=== PATIENT | female | born 1960 | race Two or more races ===

== ENCOUNTER → 2016-11-03 | Outpatient (CLI) | payer OTHER ==
--- NOTE | 2016-11-03 16:41 | CARD ---
APPROVED REPORT INDICATION Chest Pain RISK FACTORS Hypertension Reason : Dizziness PROCEDURE The patient underwent an Exercise Stress Test using the Dean Protocol. Blood pressure, heart rate, a nd EKG were monitored. An Echocardiogram was performed by collision technician in four stages in quad fashion. At peak stress four se lected images were obtained and placed side by side with resting images for comparison. STRESS ECHO FINDINGS The resting Echocardiogram showed normal left ventricular contractility with an estimated Ejection Fr action of about 60 %. The resting Echocardiogram showed wall motion abnormality in the basal and mid inferoseptalwall. The stress Echocardiogram showed wall motion abnormality in the inferior and basal and mid inferosept alwalls.. Test Type: Exercise Stress Nurse/Tech: Eloise Keller RN Test Indications: chest pain Cardiac History and Allergies: see ehr Medications: see ehr Medical History: see ehr Resting ECG: SR Resting Heart Rate: 84 bpm Resting Blood Pressure: 121/64mmHg Pretest Chest Pain: None Nurse/Tech Notes Lungs CTA, S1, S2 Consent: The procedure was explained to the patient in lay terms. Informed consent was witnessed. Eugene eout was entered into [email or web address]. History and Stress Test performed by Eloise Keller R.N. Stress Symptoms No chest pain or symptoms. POST EXERCISE Reason for Termination: Fatigue Target HR: No Max HR: 133 bpm 82% of Maximum Predicted HR: 162 bpm Exercise duration: 6:02 min:sec, 3 Stage Exercise capacity: 7.0METs Max Blood Pressure: 159/66mmHg Blood Pressure response to exercise: Normal blood pressure response during stress. Chest Pain: No. Arrhythmia: No. ST Change: No. INTERPRETATION Stress EKG Conclusion: Baseline EKG showed sinus rhythm. No ischemic changes at peak stress. No arr hythmias. RESTING ECG Rhythm: Sinus STRESS ECG Rhythm: Sinus Tachycardia Arrhythmias: None Preliminary Notification Critical Value: No <Conclusion> Treadmill exercise stress echocardiogram did not show any evidence of ischemia or infarct. However, patient achieved submaximal stress level of 82% age predicted maximum heart rate. Normal left ventricle systolic function with ejection fraction estimated at 60%. Patient had good activity tolerance.
--- NOTE | 2016-11-03 16:43 | RAD ---
Indication chronic back pain. AP and lateral views of the thoracic spine were obtained as well as a swimmer's view. There are are some degenerative changes seen in the lower cervical spine. The thoracic spine appears unremarkable. An acute bony finding is not seen. IMPRESSION: No acute or significant finding seen involving the thoracic spine
== END | disposition home or self-care (01) ==
LOC: ECHO 12:27
PROVIDERS: ATTEND Physician Assistant Medical
DX: M54.6 Pain in thoracic spine (principal); R07.9 Chest pain, unspecified
CPT/HCPCS: 72072; 93017; 93350

== ENCOUNTER → 2017-02-21 | Outpatient (CLI) | payer OTHER ==
[2017-02-02 11:00] VITALS: BP 165/81
[~2017-02-21] MED LIST: BUSP10TA PO; FLUO20CA8 PO; FOLI1TAB16 PO; GADOBUTROL 7.5 MMOL/7.5 ML VIAL IV ONE; LAMO200T PO; LISI-334 PO; LISI10TA2 PO; MELO15TA23 PO; MELO7.5T29 PO; METF500T4 PO; MIRT15TA3 PO; POLY255P PO; QUET50TA76 PO; THIA100T22 PO; TRAM50TA PO
--- NOTE | 2017-02-21 12:34 | RAD ---
MRI Brain with and without contrast History: Headaches, memory loss, history of seizures Technique: Axial diffusion, axial gradient echo T2, axial T2, axial FLAIR, sagittal and axial T1, and postcontrast axial, sagittal, and coronal T1-weighted images were acquired of the brain. Contrast: 7 cc Gadavist Comparison: January 31, 2017 Findings: There is mild motion. There is no restricted diffusion suggestive of recent infarct or cytotoxic edema. There is no intra-axial mass effect, midline shift or extra axial fluid collection, nodular parenchymal or leptomeningeal enhancement. Ventricular size is within normal limits. There is mild prominence of the supratentorial subarachnoid spaces greater than expected for the patient's age. There is again encephalomalacia with cortical involvement of the left temporal lobe laterally. There is associated gliosis signified by T2 and FLAIR hyperintense signal abnormality. There is other minimal T2 and FLAIR hyperintense signal abnormality of the supratentorial periventricular white matter bilaterally. Cerebral tonsils are normal in location. There is preservation of marrow signal of the clivus. There is no significant abnormality of the pineal gland or pituitary gland. Mastoid air cells are aerated. There is again likely mucous retention cyst at the right sphenoethmoidal recess. Impression: 1. There is no evidence of recent infarct or abnormal intracranial enhancement. 2. There is again encephalomalacia with cortical involvement of the lateral left temporal lobe compatible with previous infarct or trauma. Other very mild T2 and FLAIR hyperintense signal abnormality of the supratentorial white matter may be due to chronic microvascular ischemic disease. 3. There is mild prominence of the supratentorial subarachnoid spaces which may be due to involutional change, somewhat greater than expected for the patient's age. Electronically signed by: Vick Patino MD (02/21/2017 12:31 PM)
== END | disposition home or self-care (01) ==
LOC: MRI 10:48
PROVIDERS: ATTEND Psychiatry & Neurology Neurology with Special Qualifications in Child Neurology
DX: Q04.0 Congenital malformations of corpus callosum (principal)
CPT/HCPCS: 70553; A9585

== ENCOUNTER 2018-05-26 16:50 | Emergency (ER) | payer OTHER ==
[~2018-05-26] VITALS: Ht 154.9 cm; Wt 72.6 kg
[~2018-05-26 16:50] MED LIST changes: -GADOBUTROL 7.5 MMOL/7.5 ML VIAL IV ONE; -LAMO200T PO; +LAMO200T2 PO; +METF500T16 PO; -METF500T4 PO; -QUET50TA76 PO; +QUET50TA79 PO
[2018-05-26 17:31] LABS: BASO % 0 % (0-3); EOS # 0.2 x10^3/uL (0.0-0.7); EOS % 5 % (0-3); HEMATOCRIT 36.5 % (36.0-47.0); HEMOGLOBIN 12.5 g/dL (12.0-15.5); LYMPH # 2.3 x10^3/uL (1.0-4.8); LYMPH % 48 % (24-48); MEAN CORPUSCULAR HEMOGLOBIN 32 pg (25-35); MEAN CORPUSCULAR HGB CONC 34 g/dL (31-37); MEAN CORPUSCULAR VOLUME 93 fL (79-100); MONO # 0.3 x10^3/uL (0.0-1.1); MONO % 7 % (0-9); NEUT # 1.9 x10^3uL (1.8-7.7); NEUT % 40 % (31-73); PLATELET COUNT 145 x10^3/uL (140-400); RED BLOOD COUNT 3.91 x10^6/uL (3.50-5.40); RED CELL DISTRIBUTION WIDTH 12.8 % (11.5-14.5); WHITE BLOOD COUNT 4.8 x10^3/uL (4.0-11.0)
[2018-05-26 17:39] LABS: CALCIUM 9.1 mg/dL (8.5-10.1); CREATININE 1.2 mg/dL (0.6-1.0); GFR 45.8; POTASSIUM 3.6 mmol/L (3.5-5.1)
[2018-05-26 17:44] LABS: ALBUMIN/GLOBULIN RATIO 1.3 (1.0-1.7); TOTAL BILIRUBIN 0.5 mg/dL (0.2-1.0); TOTAL PROTEIN 7.2 g/dL (6.4-8.2)
--- NOTE | 2018-05-26 18:01 | RAD ---
CT scan of the head without contrast 05/26/2018 Clinical History: Seizure-like activity. Post fall. Technique: Unenhanced, contiguous, 5 mm axial sections were obtained through the head. One or more of the following individualized dose reduction techniques were utilized for this study: 1. Automated exposure control. 2. Adjustment of the mA and/or kV according to patient size. 3. Use of iterative reconstruction technique. Findings: Comparison study is dated 01/30/2017. There is generalized parenchymal atrophy. Areas of decreased attenuation are seen within the periventricular and subcortical white matter of both cerebral hemispheres consistent with areas of small vessel ischemic disease. No acute parenchymal abnormality is seen. No extra-axial fluid collection is noted. No skull fracture is seen. Impression: No acute intracranial abnormality is seen. Electronically signed by: Brent Green MD (05/26/2018 5:58 PM) [facility]
--- NOTE | 2018-05-26 18:23 | PHYS DOC ---
Past Medical History Past Medical History: Depression, Diabetes-Type II, High Cholesterol, Hypertension Additional Past Medical Histor: possible DM II Past Surgical History: Other Additional Past Surgical Histo: unknown Alcohol Use: Heavy Drug Use: None Adult General Chief Complaint Chief Complaint: SEIZURE HPI HPI Patient is a 58 year old female who presents after reportedly having a seizure. Pt is alert during my discussion and exam but reports she does not remember what happened. Pt does state that she has had a seizure before but it was over 10 years ago and she is not on any seizure medications. 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 They were just finishing up for the day and went to sit down and get a snack and she was chewing on some candy and per her friend she fell backwards off the chair and shook a few seconds and then it stopped and she started to "come around" but was very confused and didn't recognize her friend or know what had happened so EMS was called. Pt does have a history of alcohol abuse but states she has been sober for over a year. Pt denies any recent head trauma or medication changes. Review of Systems Review of Systems Constitutional: Denies fever or chills HENT: Denies nasal congestion or sore throat. Reports she bit her tongue. Respiratory: Denies cough or shortness of breath Cardiovascular: Denies chest pain GI: Denies abdominal pain, nausea, vomiting, bloody stools or diarrhea Musculoskeletal: Reports back pain for several months. Integument: Denies rash or skin lesions Neurologic: Denies headache, focal weakness or sensory changes. Reports seizure. Endocrine: Denies polyuria or polydipsia All other systems were reviewed and found to be within normal limits, except as documented in this note. Allergies Allergies Allergies Coded Allergies Type Severity Reaction Last Updated Verified acetaminophen Allergy Intermediate 10/05/17 Yes Physical Exam Physical Exam Constitutional: Well developed, well nourished, no acute distress, non-toxic appearance. Awake and alert and in no distress. HENT: Normocephalic, atraumatic, bilateral external ears normal, oropharynx moist, no oral exudates, nose normal. No pain with palpation of back of scalp. Pt has abrasion to L side of tongue with bruising. Eyes: PERRLA, EOMI, conjunctiva normal, no discharge. Neck: Normal range of motion, no tenderness, supple, no stridor. Cardiovascular:Heart rate regular rhythm, no murmur Lungs & Thorax: Bilateral breath sounds clear to auscultation Abdomen: Bowel sounds normal, soft, no tenderness, no masses, no pulsatile masses. Skin: Warm, dry, no erythema, no rash. Back: Low back pain with palpation, not acute, but chronic per pt Extremities: No tenderness, no cyanosis, no clubbing, ROM intact, no edema. Neurologic: Alert and oriented X 3, normal motor function, normal sensory function, no focal deficits noted. Psychologic: Affect normal, judgement normal, mood normal. Current Patient Data Vital Signs Vital Signs Date Time Temp Pulse Resp B/P (MAP) Pulse Ox O2 Delivery O2 Flow Rate FiO2 05/26/18 16:55 98.2 99 18 138/60 (86) 93 Room Air 98.2 Lab Values Laboratory Tests Test 05/26/18 17:05 05/26/18 17:44 05/26/18 18:23 White Blood Count 4.8 x10^3/uL (4.0-11.0) Red Blood Count 3.91 x10^6/uL (3.50-5.40) Hemoglobin 12.5 g/dL (12.0-15.5) Hematocrit 36.5 % (36.0-47.0) Mean Corpuscular Volume 93 fL (79-100) Mean Corpuscular Hemoglobin 32 pg (25-35) Mean Corpuscular Hemoglobin Concent 34 g/dL (31-37) Red Cell Distribution Width 12.8 % (11.5-14.5) Platelet Count 145 x10^3/uL (140-400) Neutrophils (%) (Auto) 40 % (31-73) Lymphocytes (%) (Auto) 48 % (24-48) Monocytes (%) (Auto) 7 % (0-9) Eosinophils (%) (Auto) 5 % (0-3) H Basophils (%) (Auto) 0 % (0-3) Neutrophils # (Auto) 1.9 x10^3uL (1.8-7.7) Lymphocytes # (Auto) 2.3 x10^3/uL (1.0-4.8) Monocytes # (Auto) 0.3 x10^3/uL (0.0-1.1) Eosinophils # (Auto) 0.2 x10^3/uL (0.0-0.7) Basophils # (Auto) 0.0 x10^3/uL (0.0-0.2) Sodium Level 139 mmol/L (136-145) Potassium Level 3.6 mmol/L (3.5-5.1) Chloride Level 102 mmol/L (98-107) Carbon Dioxide Level 21 mmol/L (21-32) Anion Gap 16 (6-14) H Blood Urea Nitrogen 19 mg/dL (7-20) Creatinine 1.2 mg/dL (0.6-1.0) H Estimated GFR (Cockcroft-Gault) 45.8 BUN/Creatinine Ratio 16 (6-20) Glucose Level 144 mg/dL (70-99) H Calcium Level 9.1 mg/dL (8.5-10.1) Total Bilirubin 0.5 mg/dL (0.2-1.0) Aspartate Amino Transferase (AST) 25 U/L (15-37) Alanine Aminotransferase (ALT) 30 U/L (14-59) Alkaline Phosphatase 106 U/L (46-116) Creatine Kinase 238 U/L (26-192) H Creatine Kinase MB (Mass) 1.6 ng/mL (0.0-3.6) Creatine Kinase MB Relative Index 0.7 % (0-4) Troponin I Quantitative < 0.017 ng/mL (0.000-0.055) Total Protein 7.2 g/dL (6.4-8.2) Albumin 4.0 g/dL (3.4-5.0) Albumin/Globulin Ratio 1.3 (1.0-1.7) Lactic Acid Level 2.5 mmol/L (0.4-2.0) H Urine Collection Type Unknown Urine Color Yellow Urine Clarity Clear Urine pH 5.0 Urine Specific [place] 1.020 Urine Protein 30 mg/dL (NEG-TRACE) Urine Glucose (UA) Negative mg/dL (NEG) Urine Ketones (Stick) Negative mg/dL (NEG) Urine Blood Negative (NEG) Urine Nitrite Negative (NEG) Urine Bilirubin Negative (NEG) Urine Urobilinogen Dipstick 0.2 mg/dL (0.2 mg/dL) Urine Leukocyte Esterase Negative (NEG) Urine RBC 3-5 /HPF (0-2) Urine WBC 1-4 /HPF (0-4) Urine Squamous Epithelial Cells Mod /LPF Urine Bacteria 0 /HPF (0-FEW) Urine Hyaline Casts Moderate /HPF Urine Mucus Marked /LPF Laboratory Tests 05/26/18 17:05 Laboratory Tests 05/26/18 17:05 EKG EKG [] Radiology/Procedures Radiology/Procedures [] Course & Med Decision Making Course & Med Decision Making Pt reports feeling well and wanting to leave because she is very hungry. Pt lives with her daughter who agrees to keep a close eye on her at home. Pt does not drive but was again instructed not to drive and to please follow up very closely with her PCP this next week and to return to ER if symptoms return at anytime. Regarding pt's compression fx, it was seen previously but could certainly have been aggrivated by her seizure today so encouraged to discuss also with PCP. Dragon Disclaimer Dragon Disclaimer This electronic medical record was generated, in whole or in part, using a voice recognition dictation system. Departure Departure Impression: Primary Impression: Seizure Disposition: 01 HOME, SELF-CARE Condition: IMPROVED Referrals: NICANOR SALVADOR MD (PCP) Patient Instructions: Back, Compression Fracture, Seizure, Adult Additional Instructions: The compression fracture in your low back was seen previously but could be worse with your recent increase in pain. Please discuss with your doctor further. We are unclear what caused this seizure today but tests appear normal and you are feeling back to baseline. Please rest, push fluids and follow up closely with your doctor. Do not drive. SHANE ROSALES May 26, 2018 18:23
[2018-05-26 18:31] LABS: BILIRUBIN,URINE NEGATIVE (NEG); CLARITY,URINE CLEAR; COLOR,URINE YELLOW; NITRITE,URINE NEGATIVE (NEG); PROTEIN,URINE 30 mg/dL (NEG-TRACE); UROBILINOGEN,URINE 0.2 mg/dL (0.2 mg/dL)
--- NOTE | 2018-05-26 18:31 | RAD ---
Three view lumbosacral spine History: Pain AP, coned-down lateral and lateral views of the lumbosacral spine were obtained. The vertebral bodies are aligned. There is mild loss of stature of the L1 vertebral body with impaction of the superior endplate and mild wedge-shaped deformity. Intervertebral disc heights are preserved. Impression: L1 vertebral body compression fracture appears similar to the November 03, 2016 3 views thoracic spine and is likely old. End Impression Electronically signed by: Aj Boucher III, MD (05/26/2018 6:27 PM) [id number]
[2018-05-26 18:46] LABS: BACTERIA,URINE 0 /HPF (0-FEW); SQUAMOUS EPITHELIAL CELL,UR MOD /LPF
[2018-05-26 18:47] LABS: HYALINE CASTS, URINE MODERATE /HPF
[2018-05-26 19:15] VITALS: BP 144/79
== END 2018-05-26 19:22 | disposition home or self-care (01) ==
LOC: ER 16:50
DX: R56.9 Unspecified convulsions (principal); E78.00 Pure hypercholesterolemia, unspecified; I10 Essential (primary) hypertension; E11.9 Type 2 diabetes mellitus without complications; F32.9 Major depressive disorder, single episode, unspecified; F10.20 Alcohol dependence, uncomplicated; Z88.6 Allergy status to analgesic agent
CPT/HCPCS: 36415; 70450; 72100; 80053; 81001; 82553; 83605; 84484; 85025; 99285-25

== ENCOUNTER → 2018-08-17 | Outpatient (CLI) | payer OTHER ==
[~2018-08-17] MED LIST changes: -POLY255P PO; +POLY255P11 PO
[2018-08-17 09:08] LABS: BASO % 1 % (0-3); EOS # 0.2 x10^3/uL (0.0-0.7); EOS % 5 % (0-3); HEMATOCRIT 37.3 % (36.0-47.0); HEMOGLOBIN 12.9 g/dL (12.0-15.5); LYMPH # 1.4 x10^3/uL (1.0-4.8); LYMPH % 41 % (24-48); MEAN CORPUSCULAR HEMOGLOBIN 32 pg (25-35); MEAN CORPUSCULAR HGB CONC 35 g/dL (31-37); MEAN CORPUSCULAR VOLUME 93 fL (79-100); MONO # 0.3 x10^3/uL (0.0-1.1); MONO % 8 % (0-9); NEUT # 1.5 x10^3uL (1.8-7.7); NEUT % 45 % (31-73); PLATELET COUNT 168 x10^3/uL (140-400); RED BLOOD COUNT 4.03 x10^6/uL (3.50-5.40); RED CELL DISTRIBUTION WIDTH 12.4 % (11.5-14.5); WHITE BLOOD COUNT 3.4 x10^3/uL (4.0-11.0)
[2018-08-17 09:30] LABS: ALBUMIN 3.9 g/dL (3.4-5.0); ALBUMIN/GLOBULIN RATIO 1.1 (1.0-1.7); CALCIUM 9.3 mg/dL (8.5-10.1); GFR 56.6; POTASSIUM 4.4 mmol/L (3.5-5.1); TOTAL BILIRUBIN 0.4 mg/dL (0.2-1.0); TOTAL PROTEIN 7.3 g/dL (6.4-8.2)
[2018-08-17 09:38] LABS: BARBITURATES NEG (NEG); BENZODIAZEPINES NEG (NEG); CANNABINOIDS NEG (NEG); COCAINE NEG (NEG); METHADONE NEG (NEG); OPIATES NEG (NEG); PHENCYCLIDINE NEG (NEG)
[2018-08-17 09:40] LABS: AMPHETAMINE/METHAMPHETAMINE NEG (NEG)
== END | disposition home or self-care (01) ==
LOC: LAB 08:41
PROVIDERS: ATTEND Psychiatry & Neurology Neurology
DX: R56.9 Unspecified convulsions (principal)
CPT/HCPCS: 80053; 80307; 84443; 85025

== ENCOUNTER → 2018-08-18 | Outpatient (CLI) | payer OTHER ==
--- NOTE | 2018-08-22 21:32 | EEG ---
DATE OF SERVICE: 08/18/2018 EEG NUMBER: [id number] OBJECTIVE: This is a 58-year-old female patient with history of seizure or seizure-like episodes. EEG was requested to evaluate seizure activity. METHODS: Twenty electrodes were applied according to the international 10-20 electrode placement system. EKG monitoring, hyperventilation, intermittent photic stimulation, monopolar and bipolar montages were routinely utilized. The record was obtained on a digital system with video monitoring. FINDINGS: 1. Background: The patient was recorded in the awake, drowsy, and sleep states. The overall background amplitude was 10-30 microvolts. A posterior dominant rhythm of 8 Hz was observed. 2. Abnormalities: No specific epileptiform discharge or electrographic seizure is seen. 3. Activation: Hypoventilation was performed with poor efforts. Intermittent photic stimulation was performed with photic driving. No specific epileptiform discharge or electrographic seizure induced by hyperventilation or intermittent photic stimulation. IMPRESSION: This EEG is a normal study for the awake, drowsy, and sleep states. No focal, lateralizing, specific epileptiform discharge or electrographic seizure is seen. GREGG BOURGEOIS MD DR: WENDY/miriam JOB#: [id number] / [id number] DEON
== END | disposition home or self-care (01) ==
LOC: RT 13:01
PROVIDERS: ATTEND Psychiatry & Neurology Neurology
DX: R56.9 Unspecified convulsions (principal)
CPT/HCPCS: 95816